=== PATIENT | female | born 1995 | race Caucasian/White ===

== ENCOUNTER 2021-04-30 17:06 | Emergency (ER) | payer OTHER, SELFPAY ==
--- NOTE | ~2021-04-30 | US_ITS ---
US venous doppler [facility] DATE: 04/30/2021 18:07 INDICATION: Swelling of left leg TECHNIQUE: Real-time and color flow imaging and Doppler analysis of the veins of the left lower extre mity COMPARISON: None FINDINGS: There is spontaneous and phasic flow and normal augmentation and color flow signal and norm al compression of the deep veins of the left leg. There is no evidence of deep venous thrombosis. IMPRESSION: No evidence of deep venous thrombosis of left lower extremity Reviewed, dictated and finalized at [facility] Reviewed, dictated and finalized at [facility].
[2021-04-30 17:42] VITALS: BP 119/87; PULSE 84; RESP 16; TEMP 36.6; O2SAT 97
[2021-04-30 18:45] VITALS: BP 111/72; PULSE 80; RESP 18; O2SAT 97
--- NOTE | 2021-04-30 18:48 | ED.GENADULT ---
HPI - General Adult General Chief complaint: Extremity Injury, Lower Stated complaint: left foot pain Time Seen by Provider: 04/30/21 18:27 Source: patient History of Present Illness HPI narrative: Patient is a 25 y/o female complaining of moderate left ankle swelling since yesterday. She has no ankle pain. She has no recently injury to her ankle. She has no chest pain or SOB. She was seen early today at [facility] and had negative xray. She states that her swelling has gone down since TERRENCE wrap was applied at [facility]. She was told that it could be a blood clot and decided to come here for further evaluation. Related Data Allergies Allergy/AdvReac Type Severity Reaction Status Date / Time fluoxetine [From Prozac] AdvReac Other Verified 04/30/21 18:44 Review of Systems Constitutional: Constitutional: Denies chills, Denies fever(s), Denies headache(s) and Denies weakness Eyes: Eyes: Denies blurry vision ENT: Denies headache(s) and Denies neck pain Cardiovascular: Cardiovascular: Denies chest pain and Denies dyspnea Respiratory: Respiratory: Denies cough and Denies dyspnea Gastrointestinal: Gastrointestinal: Denies abdominal pain, Denies diarrhea, Denies nausea and Denies vomiting Genitourinary: Genitourinary: Denies hematuria and Denies dysuria Musculoskeletal: Musculoskeletal: Denies back pain, Reports joint swelling (left farideh swelling) and Denies neck pain Neurologic: Denies headache(s) and Denies weakness Exam Const: General: no acute distress and well developed Orientation/consciousness: oriented to person, oriented to place, oriented to time and patient oriented x3 HENMT: Head: normocephalic Ears: external ears normal General nose exam: Normal external nose present Eyes: General: appearance normal, both eyes and all related structures Conjunctivae: conjunctivae normal Neck: Neck: normal visual inspection and full ROM Chest: Chest palpation & inspection: normal inspection of the chest and no tenderness Resp: Effort & Inspection: normal respiratory effort Auscultation: clear to auscultation bilaterally Cardio: Rate: regular rate Rhythm: regular rhythm GI: GI Palp: No abdominal tenderness and Yes Soft to palpation Skin: General skin exam: normal color and turgor normal Neuro: General: oriented to person, oriented to place, oriented to time and patient oriented x3 Cognition (Neuro): normal cognition Extrem: General: normal to inspection, full ROM and no pedal edema Right lower extremity: no edema Left lower extremity: no edema Psych: Appearance: grossly normal Mental Status: mental status grossly normal Affect: normal affect Course Vital Signs Vital signs: Vital Signs Temperature 36.6 C 04/30/21 17:42 Pulse Rate 84 04/30/21 17:42 Respiratory Rate 16 04/30/21 17:42 Blood Pressure 119/87 04/30/21 17:42 Pulse Oximetry 97 04/30/21 17:42 Temperature 36.6 C 04/30/21 17:42 Pulse Rate 80 04/30/21 18:45 Respiratory Rate 18 04/30/21 18:45 Blood Pressure 111/72 04/30/21 18:45 Pulse Oximetry 97 04/30/21 18:45 Medical Decision Making Vital Signs Vital Signs: Vital Signs Temperature 36.6 C 04/30/21 17:42 Pulse Rate 84 04/30/21 17:42 Respiratory Rate 16 04/30/21 17:42 Blood Pressure 119/87 04/30/21 17:42 Pulse Oximetry 97 04/30/21 17:42 Temperature 36.6 C 04/30/21 17:42 Pulse Rate 80 04/30/21 18:45 Respiratory Rate 18 04/30/21 18:45 Blood Pressure 111/72 04/30/21 18:45 Pulse Oximetry 97 04/30/21 18:45 Discharge Plan Discharge Clinical Impression: Left ankle swelling Patient Disposition: Home, Self-Care Condition: Stable Instructions: Edema (ED) Follow-up/Referrals: Hopper,Khadijah Wing APRN [Primary Care Provider] - Stand Alone Forms: Work/School Release IP
== END 2021-04-30 18:57 | disposition home or self-care (01) ==
PROVIDERS: Emergency Provider Emergency Medicine; PCP Nurse Practitioner Family
DX: M25.472 Effusion, left ankle (principal)
CPT/HCPCS: 93971; 99284

== ENCOUNTER 2023-02-19 11:30 | Emergency (ER) | payer OTHER, SELFPAY ==
[2023-02-19 11:52] VITALS: BP 121/84; PULSE 89; RESP 18; TEMP 36.3; O2SAT 96
[2023-02-19 12:44] LABS: Basophils Percent Auto 0.3 % (0.2-1.2); Eosinophils Percent Auto 0.2 % (0-4.4); Hematocrit 43.9 % (37.0-47.0); Hemoglobin 14.7 g/dL (12.0-15.0); Immature Granulocyte Absolute 0.04 K/mm3 (0.00-0.031); Immature Granulocyte Percent A 0.3 % (0-0.5); Lymphocytes Absolute Auto 2.37 K/mm3 (0.9-3.2); Lymphocytes Percent Auto 17.6 % (18.3-44.2); Mean Corpuscular HGB Conc 33.5 g/dl (32-36); Mean Corpuscular Hemoglobin 32.2 pg (26-34); Mean Corpuscular Volume 96.3 fl (80-100); Mean Platelet Volume 10.2 fl (7.4-10.4); Monocytes Absolute Auto 1.1 K/mm3 (0.1-0.6); Monocytes Percent Auto 7.9 % (2.6-8.5); Neutrophils Absolute Auto 9.9 K/mm3 (1.3-6.7); Neutrophils Percent Auto 73.7 % (45.5-73.1); Platelet Count Result 243 k/mm3 (150-375); Red Blood Count 4.56 M/mm3 (4.2-5.4); Red Cell Distribution Width 13.3 % (11.5-14.5); White Blood Count 13.5 K/mm3 (4.5-10.0)
[2023-02-19 12:46] LABS: Appearance Urine Cloudy (Clear); Bacteria Urine 1+ /hpf; Bilirubin Urine Negative (Negative); Blood Urine Negative (Negative); Color Urine Yellow (Yellow); Glucose Urine UA Negative (Negative); Ketones Urine Negative (Negative); Leukocyte Esterase Ur Negative LEU/UL (Negative); Nitrate Urine Negative (Negative); Non Pathogenic Casts 0-2; Protein Urine Negative (Negative); RBC Urine 0-2 /hpf (0-2); Specific Grav Ur 1.017 (1.001-1.035); Squamous Epithelial Cell Urine Moderate /hpf (Few); Urobilinogen Urine 0.2 mg/dL (<2.0); WBC Urine 0-5 /hpf; pH Urine 6.5 (5.0-9.0)
[2023-02-19 12:54] LABS: Alanine Aminotransferase 19 U/L (6-35); Albumin Level 4.3 g/dL (3.5-5.1); Alkaline Phosphatase 111 U/L (38-126); Anion Gap 3 mmol/L (8-16); Aspartate Amino Transferase 21 U/L (14-36); Bilirubin,Total 0.6 mg/dL (0.2-1.3); Blood Urea Nitrogen 8 mg/dL (7-17); Calcium 8.9 mg/dL (8.4-10.2); Carbon Dioxide 31 mmol/L (22-30); Chloride 103 mmol/L (98-107); Estimated Glomerular Filt Rate > 60; Glucose 97 mg/dL (65-110); Lipase 21 U/L (23-300); Potassium 4.1 mmol/L (3.4-5.0); Sodium 137 mmol/L (137-145)
[2023-02-19 13:02] LABS: Add Urine Microscopic? YES
--- NOTE | 2023-02-19 13:09 | ED.ABDPAIN ---
HPI - Abdominal Pain General Chief Complaint: Abdominal Pain Stated Complaint: abd pain Time Seen by Provider: 02/19/23 12:10 History of Present Illness HPI narrative: This is a 27-year-old female with past history of Crohn's, who presents to the emergency department complaining of cramping abdominal pain. She states the pain as rated 4/10, has been present for the past day but is not associated with bleeding, nausea or vomiting. The patient states she was taking an oral liquid medication but ran out. She attempted to call her GI doctor but was unable to reach him (Dr. Rich). Related Data Allergies Allergy/AdvReac Type Severity Reaction Status Date / Time fluoxetine [From Prozac] AdvReac Other Verified 04/30/21 18:44 Review of Systems Review of Systems: CONSTITUTIONAL: Denies fever, chills, or sweats. CARDIOVASCULAR: Denies chest pain, palpitations, or edema. RESPIRATORY: Denies cough or dyspnea. GASTROINTESTINAL: Cramping abdominal pain denies nausea, vomiting, or diarrhea. GENITOURINARY: Denies dysuria or hematuria. SKIN: Denies rash or itching. MUSCULOSKELETAL: Denies back pain, joint pain, or myalgia. NEUROLOGIC: Denies headache, numbness, dizziness, or weakness. PSYCHIATRIC: Denies anxiety or depression. [facility] Past Medical History Medical History Crohn disease Social History Social History (Updated 02/19/23 @ 23:57 by Rik Fernando MD) Smoking status: Never smoker Alcohol intake: current Drinks per week: 2 Substance use: current Substance use type: marijuana Exam Narrative: GENERAL: Well-developed, well-nourished, and in no acute distress. HEAD: Normocephalic, atraumatic. EYES: PERRLA and EOMI. ENT: Nares clear, no rhinorrhea or epistaxis. Mucous membranes moist. Oropharynx without tonsillar hypertrophy exudate or other lesions. CHEST: Clear to auscultation. No respiratory distress. No wheezes rales or rhonchi HEART: Regular rate and rhythm. No murmur heard. Normal peripheral pulses. ABDOMEN: Soft, nontender, nondistended, normal active bowel sounds. No CVA tenderness to palpation EXTREMITIES: Normal range of motion. No edema. SKIN: Warm, dry, no rash. NEURO: No focal deficits. Alert and oriented x3. PSYCH: Normal mood and affect. Course Course Emergency Course: 15:05 - White blood cell count 13.5. CRP 1.3 and ESR 9 - not significantly elevated. CBC otherwise unremarkable. Chemistries unremarkable. I do not suspect acute Crohn's flare. UA not concerning for UTI and test is negative. Will discharge with Bentyl. The patient has a follow-up appointment with her GI on March 17. Discussed return emergency precautions including signs/symptoms of acute abdomen and intractable vomiting. The patient voiced understanding and is comfortable with plan. All questions answered to her satisfaction. Vital Signs Vital signs: Vital Signs Temperature 97.4 F L 02/19/23 11:52 Pulse Rate 89 02/19/23 11:52 Respiratory Rate 18 02/19/23 11:52 Blood Pressure 121/84 02/19/23 11:52 Pulse Oximetry 96 02/19/23 11:52 Oxygen Delivery Room Air 02/19/23 11:52 Temperature 97.4 F L 02/19/23 11:52 Pulse Rate 82 02/19/23 15:26 Respiratory Rate 18 02/19/23 15:26 Blood Pressure 124/88 02/19/23 15:26 Pulse Oximetry 100 02/19/23 15:26 Oxygen Delivery Room Air 02/19/23 11:52 MDM - Abdominal Pain MDM Narrative Medical decision making narrative: Plan: Labs, pain control, test, reassess Differential Diagnosis Differential diagnosis: Likely constipation and other (UTI, Crohn's flare, , metabolic abnormality, other) Lab Data 02/19/23 12:20 02/19/23 12:20 Labs: Lab Results 02/19/23 02/19/23 02/19/23 Range/Units 12:19 12:19 12:20 WBC (4.5-10.0) K/mm3 RBC (4.2-5.4) M/mm3 Hgb (12.0-15.0) g/dL Hct (37.0-47.0) % MCV (80-100) fl MCH
[2023-02-19] MEDS: DICYCLOMINE HCL INJ 20 MG/2 ML VIAL IM (13:11)
[2023-02-19 13:13] LABS: CRP 1.3 mg/dL (<1.0)
[2023-02-19 14:35] LABS: Erythrocyte Sedimentation Rate 9 mm/hr (0-20)
[2023-02-19 15:26] VITALS: BP 124/88; PULSE 82; RESP 18; O2SAT 100
== END 2023-02-19 15:32 | disposition home or self-care (01) ==
PROVIDERS: Emergency Medicine; Emergency Provider Preventive Medicine Aerospace Medicine; PCP Nurse Practitioner Family
DX: R10.9 Unspecified abdominal pain (principal); K50.90 Crohn's disease, unspecified, without complications; F12.90 Cannabis use, unspecified, uncomplicated
CPT/HCPCS: 36415; 80053; 81001; 81025; 83690; 85025; 85652; 86140; 96372; 99283; J0500

== ENCOUNTER 2023-11-25 22:23 | Emergency (ER) | payer OTHER, SELFPAY ==
--- NOTE | ~2023-11-25 | CT_ITS ---
CT of the Abdomen and Pelvis: Indication: Abdominal pain Technique: 2.5 mm axial scans were obtained through the abdomen and pelvis following intravenous adm inistration of 100 cc of Omnipaque 350. Dose reduction technique was used on this scan by utilizing a utomated exposure control and iterative reconstruction technique. The dose-length product (DLP) was 1 412.17 mGy-cm. Findings: Scans through the lung bases are unremarkable. The liver, spleen, pancreas, gallbladder, adrenals and right kidney are within normal limits. 9 mm no nobstructing left renal stone noted. Additional 3 mm nonobstructing left renal stone also present. No evidence of aortic aneurysm. No lymphadenopathy. No bowel obstruction or bowel wall thickening. There is no evidence to suggest acute appendicitis. Images through the pelvis were performed. Urinary bladder unremarkable. No adnexal mass seen. No asci newton. Impression: Nonobstructing left nephrolithiasis, as detailed above. Reviewed, dictated and finalized at [facility]. [employer] Impression: Nonobstructing left nephrolithiasis, as detailed above.
[2023-11-25 22:30] VITALS: BP 135/77; PULSE 85; RESP 16; TEMP 36.8; O2SAT 98
[2023-11-25 22:59] LABS: Basophils Percent Auto 0.4 % (0.2-1.2); Eosinophils Absolute Auto 0.1 K/mm3 (0-0.3); Hematocrit 44.3 % (37.0-47.0); Hemoglobin 14.3 g/dL (12.0-15.0); Immature Granulocyte Absolute 0.03 K/mm3 (0.00-0.031); Immature Granulocyte Percent A 0.3 % (0-0.5); Lymphocytes Absolute Auto 3.01 K/mm3 (0.9-3.2); Lymphocytes Percent Auto 29.9 % (18.3-44.2); Mean Corpuscular HGB Conc 32.3 g/dl (32-36); Mean Corpuscular Hemoglobin 31.2 pg (26-34); Mean Corpuscular Volume 96.5 fl (80-100); Mean Platelet Volume 10.3 fl (7.4-10.4); Monocytes Absolute Auto 0.9 K/mm3 (0.1-0.6); Neutrophils Percent Auto 59.4 % (45.5-73.1); Platelet Count Result 266 k/mm3 (150-375); Red Blood Count 4.59 M/mm3 (4.2-5.4); White Blood Count 10.1 K/mm3 (4.5-10.0)
[2023-11-25 23:05] LABS: Appearance Urine Cloudy (Clear); Bacteria Urine 1+ /hpf; Bilirubin Urine Negative (Negative); Blood Urine 1+ (Negative); Color Urine Yellow (Yellow); Glucose Urine UA Negative (Negative); Ketones Urine Trace mg/dL (Negative); Leukocyte Esterase Ur 2+ LEU/UL (Negative); Nitrate Urine Negative (Negative); Non Pathogenic Casts 0-2; Protein Urine Negative (Negative); RBC Urine 0-2 /hpf (0-2); Specific Grav Ur 1.029 (1.001-1.035); Squamous Epithelial Cell Urine Few /hpf (Few); WBC Urine 51-100 /hpf
[2023-11-25 23:08] LABS: Alanine Aminotransferase 14 U/L (6-35); Albumin Level 4.2 g/dL (3.5-5.1); Alkaline Phosphatase 110 U/L (38-126); Anion Gap 8 mmol/L (8-16); Aspartate Amino Transferase 20 U/L (14-36); Bilirubin,Total 0.4 mg/dL (0.2-1.3); Blood Urea Nitrogen 15 mg/dL (7-17); Calcium 9.1 mg/dL (8.4-10.2); Carbon Dioxide 27 mmol/L (22-30); Chloride 104 mmol/L (98-107); Estimated CRCL calculation 112 ml/min; Estimated Glomerular Filt Rate > 60; Glucose 73 mg/dL (65-110); Lipase 58 U/L (23-300); Potassium 3.7 mmol/L (3.4-5.0); Sodium 139 mmol/L (137-145)
[2023-11-25 23:20] LABS: Add Urine Microscopic? YES
--- NOTE | 2023-11-26 00:48 | ED.ABDPAIN ---
HPI - Abdominal Pain General Chief Complaint: Abdominal Pain Stated Complaint: abd pain Time Seen by Provider: 11/26/23 00:11 Source: patient Mode of arrival: ambulatory Limitations: no limitations History of Present Illness HPI narrative: This is a 28 year old female that presents to the ER for abdominal pain. Ongoing over the last couple of hours. Reports mid abdominal pain and nausea. Does report some urinary frequency. Reports diarrhea that is chronic for her due to IBD. Denies fever, vomiting or dysuria. Related Data Allergies Allergy/AdvReac Type Severity Reaction Status Date / Time fluoxetine [From Prozac] AdvReac Other Verified 04/30/21 18:44 Review of Systems Review of Systems: CONSTITUTIONAL: Denies fever GASTROINTESTINAL: Reports abdominal pain, nausea, and diarrhea. GENITOURINARY: Denies dysuria or hematuria. All systems reviewed & are unremarkable except as noted in HPI and below PMFSH Past Medical History Medical History Crohn disease Social History Social History (Updated 02/19/23 @ 23:57 by Rik Fernando MD) Smoking status: Never smoker Alcohol intake: current Drinks per week: 2 Substance use: current Substance use type: marijuana Exam Narrative: GENERAL: Well-appearing, well-nourished, and in no acute distress. HEAD: Normocephalic, atraumatic. EYES: EOMI. CHEST: Clear to auscultation. No respiratory distress. No wheezes rales or rhonchi HEART: Regular rate and rhythm. No murmur heard. Normal peripheral pulses. ABDOMEN: Soft, nondistended, normal active bowel sounds. Mild tenderness to palpation throughout the mid abdomen, without guarding EXTREMITIES: Normal range of motion. No edema. SKIN: Warm, dry, no rash. NEURO: No focal deficits. Alert and oriented x3. PSYCH: Normal mood and affect Course Course Emergency Course: Patient updated on workup and agrees with plan of care. Resting comfortably Vital Signs Vital signs: Vital Signs Temperature 98.3 F 11/25/23 22:30 Pulse Rate 85 11/25/23 22:30 Respiratory Rate 16 11/25/23 22:30 Blood Pressure 135/77 11/25/23 22:30 Pulse Oximetry 98 11/25/23 22:30 Oxygen Delivery Room Air 11/25/23 22:30 Temperature 98.3 F 11/25/23 22:30 Pulse Rate 85 11/25/23 22:30 Respiratory Rate 16 11/25/23 22:30 Blood Pressure 135/77 11/25/23 22:30 Pulse Oximetry 98 11/25/23 22:30 Oxygen Delivery Room Air 11/25/23 22:30 MDM - Abdominal Pain MDM Narrative Medical decision making narrative: Patient presents to the emergency department for abdominal pain and nausea. She is afebrile and nontoxic appearing. Her vitals are stable. CBC without leukocytosis. Metabolic panel without concerning findings. UA with evidence of infection. This will be sent for culture. Bedside test is negative. CT abdomen and pelvis without acute findings. Patient updated on workup and agrees with plan of care. Resting comfortably. Patient given 1st dose of antibiotics IV in the ED. Will be sent with oral antibiotics. She is to follow up with her primary provider. She was given warnings to return to the ER Differential Diagnosis Differential diagnosis: Likely calculus of kidney, diverticulitis, gastroenteritis and other (UTI, colitis) Lab Data Attestation: I reviewed the patient's lab results. 11/25/23 22:37 11/25/23 22:37 Labs: Lab Results 11/25/23 Range/Units 22:37 WBC 10.1 H (4.5-10.0) K/mm3 RBC 4.59 (4.2-5.4) M/mm3 Hgb 14.3 (12.0-15.0) g/dL Hct 44.3 (37.0-47.0) % MCV 96.5 (80-100) fl MCH 31.2 (26-34) pg MCHC 32.3 (32-36) g/dl RDW 13.0 (11.5-14.5) % Plt Count 266 (150-375) k/mm3 MPV 10.3 (7.4-10.4) fl Immature Gran % (Auto) 0.3 (0-0.5) % Neut % (Auto) 59.4 (45.5-73.1) % Lymph % (Auto) 29.9 (18.3-44.2) % Appling % (Auto) 9.0 H (2.6-8.5) % Eos % (Auto) 1.0 (0-4.
[2023-11-26 03:14] VITALS: BP 132/70; PULSE 80; RESP 18; O2SAT 98
== END 2023-11-26 03:14 | disposition home or self-care (01) ==
PROVIDERS: Emergency Medicine; Emergency Provider Physician Assistant
DX: N39.0 Urinary tract infection, site not specified (principal); R10.9 Unspecified abdominal pain
CPT/HCPCS: 36415; 74177; 80053; 81001; 81025; 83690; 85025; 87077; 87086; 87088; 96365; 99284; J0696; Q9967

== ENCOUNTER 2024-03-30 03:09 | Emergency (ER) | payer OTHER, SELFPAY ==
--- NOTE | ~2024-03-30 | CT_ITS ---
CT of the Abdomen and Pelvis: Indication: Abdominal pain, Crohn's disease Technique: 2.5 mm axial scans were obtained through the abdomen and pelvis following intravenous adm inistration of 100 cc of Omnipaque 350. Dose reduction technique was used on this scan by utilizing a utomated exposure control and iterative reconstruction technique. The dose-length product (DLP) was 1 158.75 mGy-cm. COMPARISON: 11/26/2023 Findings: Scans through the lung bases are unremarkable. The liver, spleen, pancreas, gallbladder, adrenals and right kidney are within normal limits. 7 mm no nobstructing left renal stone present. Additional 3 mm nonobstructing left renal stone present. No ev idence of aortic aneurysm. No lymphadenopathy. No bowel obstruction or bowel wall thickening. There is no evidence to suggest acute appendicitis. Images through the pelvis were performed. Urinary bladder unremarkable. No pelvic mass seen. No ascit es. Impression: No acute abnormality seen. Stable nonobstructing left nephrolithiasis, as detailed above. Reviewed, dictated and finalized at [facility]. Impression: No acute abnormality seen. Stable nonobstructing left nephrolithiasis, as detailed above.
[2024-03-30 03:17] VITALS: BP 131/66; PULSE 94; RESP 13; TEMP 36.6; O2SAT 98
[2024-03-30 04:00] LABS: Appearance Urine Clear (Clear); Bacteria Urine None Seen /hpf; Bilirubin Urine Negative (Negative); Blood Urine Negative (Negative); Color Urine Yellow (Yellow); Glucose Urine UA Negative (Negative); Ketones Urine Negative (Negative); Leukocyte Esterase Ur Trace LEU/UL (Negative); Nitrate Urine Negative (Negative); Non Pathogenic Casts 0-2; Protein Urine Negative (Negative); RBC Urine 0-2 /hpf (0-2); Specific Grav Ur 1.013 (1.001-1.035); Squamous Epithelial Cell Urine Occasional /hpf (Few); Urobilinogen Urine 0.2 mg/dL (<2.0); WBC Urine 0-5 /hpf (0-3); pH Urine 6.5 (5.0-9.0)
[2024-03-30 04:01] LABS: Add Urine Microscopic? YES
[2024-03-30 04:28] LABS: Amphetamine Screen Urine Negative (Negative); Barbiturate Screen Urine Negative (Negative); Benzodiazepines Screen Urine Negative (Negative); Cannabinoid Screen Urine Positive (Negative); Cocaine Screen Urine Negative (Negative); Methadone Screen Urine Negative (Negative); Opiate Screen Urine Negative (Negative); Phencyclidine Screen Urine Negative (Negative)
[2024-03-30 04:31] LABS: Basophils Absolute Auto 0.1 K/mm3 (0.0-0.1); Basophils Percent Auto 0.4 % (0.2-1.2); Eosinophils Absolute Auto 0.1 K/mm3 (0-0.3); Eosinophils Percent Auto 0.7 % (0-4.4); Hematocrit 46.5 % (37.0-47.0); Hemoglobin 15.8 g/dL (12.0-15.0); Immature Granulocyte Absolute 0.04 K/mm3 (0.00-0.031); Immature Granulocyte Percent A 0.3 % (0-0.5); Lymphocytes Absolute Auto 3.26 K/mm3 (0.9-3.2); Lymphocytes Percent Auto 28.4 % (18.3-44.2); Mean Corpuscular Hemoglobin 31.6 pg (26-34); Mean Platelet Volume 10.5 fl (7.4-10.4); Monocytes Absolute Auto 1.1 K/mm3 (0.1-0.6); Monocytes Percent Auto 9.2 % (2.6-8.5); Platelet Count Result 246 k/mm3 (150-375); Red Cell Distribution Width 13.3 % (11.5-14.5); White Blood Count 11.5 K/mm3 (4.5-10.0)
[2024-03-30] MEDS: DICYCLOMINE HCL 10 MG CAPSULE 20 MG PO (04:35)
[2024-03-30] MEDS: KETOROLAC 15 MG/ML VIAL (*BKC) IV PUSH (04:35)
[2024-03-30 04:44] LABS: Ethanol < 10 mg/dL (<10)
[2024-03-30 04:57] LABS: Alanine Aminotransferase 18 U/L (6-35); Albumin Level 4.4 g/dL (3.5-5.1); Alkaline Phosphatase 93 U/L (38-126); Anion Gap 4 mmol/L (4-12); Aspartate Amino Transferase 22 U/L (14-36); Bilirubin,Total 0.5 mg/dL (0.2-1.3); Blood Urea Nitrogen 15 mg/dL (7-17); Calcium 9.7 mg/dL (8.4-10.2); Carbon Dioxide 26 mmol/L (22-30); Chloride 104 mmol/L (98-107); Estimated CRCL calculation 129 ml/min; Estimated Glomerular Filt Rate > 60; Glucose 96 mg/dL (65-110); Lipase 64 U/L (23-300); Potassium 4.1 mmol/L (3.4-5.0); Sodium 134 mmol/L (137-145)
--- NOTE | 2024-03-30 05:39 | ED.GENADULT ---
HPI - General Adult General Chief complaint: Abdominal Pain Stated complaint: abd pain Time Seen by Provider: 03/30/24 03:24 History of Present Illness HPI narrative: This is a 28-year-old female with history of Crohn's disease presenting for abdominal pain. Abdominal pain is a crampy pain in the suprapubic area that started earlier today. It is not associated nausea or vomiting. Her last bowel movement was earlier today was more firm than her typical diarrhea. Patient denies fever or chills. She denies urinary symptoms. She has been taking her Crohn's medications as directed. She has not taken anything for pain. Related Data Allergies Allergy/AdvReac Type Severity Reaction Status Date / Time fluoxetine [From Prozac] AdvReac Other Verified 04/30/21 18:44 [facility] Past Medical History Medical History Crohn disease Social History Social History Smoking status: Never smoker Alcohol intake: current Drinks per week: 2 Substance use: current Substance use type: marijuana Exam Narrative: APPEARANCE: No apparent distress. Head: atraumatic. EYES: EOMI, NOSE: Atraumatic NECK: Trachea midline RESPIRATORY: No increased rate of breathing CTAB CARDIOVASCULAR: RRR, ABDOMINAL: Mild suprapubic tenderness, the rest the abdomen is soft nontender no guarding or rebound. MUSCULOSKELETAl: No obvious deformities NEURO: Alert. Moving 4/4 extremities SKIN:: Warm, dry. Normal color PSYCHIATRIC: Normal affect Course Vital Signs Vital signs: Vital Signs Temperature 97.9 F 03/30/24 03:17 Pulse Rate 94 03/30/24 03:17 Respiratory Rate 13 03/30/24 03:17 Blood Pressure 131/66 03/30/24 03:17 Pulse Oximetry 98 03/30/24 03:17 Oxygen Delivery Room Air 03/30/24 03:17 Temperature 97.9 F 03/30/24 03:17 Pulse Rate 73 03/30/24 06:11 Respiratory Rate 16 03/30/24 06:11 Blood Pressure 129/72 03/30/24 06:11 Pulse Oximetry 96 03/30/24 06:11 Oxygen Delivery Room Air 03/30/24 03:17 Medical Decision Making [facility] Narrative Medical decision making narrative: -Course: 20-year-old female with Crohn's presenting with abdominal pain. Laboratory studies within limits. CT unremarkable. Patient's symptoms improved with Toradol and dicyclomine. vital signs stable and abdominal exam improved. Unclear etiology of abdominal pain but she says the dicyclomine made her feel much better. She will be provided prescription .Patient be discharged follow-up with her GI doctor. Given returnprecautions. -DDX includes but is not limited to: Crohn's flare, colitis, constipation, appendicitis -Co-morbidities complicating care: Crohn's disease -Independent interpretation of studies: labs reviewed within normal limits. UDS positive for cannabinoids. -Interventions: Toradol, dicyclomine -Shared decision making / Disposition: discharge -RX dicyclomine Vital Signs Vital Signs: Vital Signs Temperature 97.9 F 03/30/24 03:17 Pulse Rate 94 03/30/24 03:17 Respiratory Rate 13 03/30/24 03:17 Blood Pressure 131/66 03/30/24 03:17 Pulse Oximetry 98 03/30/24 03:17 Oxygen Delivery Room Air 03/30/24 03:17 Temperature 97.9 F 03/30/24 03:17 Pulse Rate 73 03/30/24 06:11 Respiratory Rate 16 03/30/24 06:11 Blood Pressure 129/72 03/30/24 06:11 Pulse Oximetry 96 03/30/24 06:11 Oxygen Delivery Room Air 03/30/24 03:17 Lab Data 03/30/24 04:24 03/30/24 04:24 Labs: Lab Results 03/30/24 03/30/24 Range/Units 03:45 04:24 WBC 11.5 H (4.5-10.0) K/mm3 RBC 5.00 (4.2-5.4) M/mm3 Hgb 15.8 H (12.0-15.0) g/dL Hct 46.5 (37.0-47.0) % MCV 93.0 (80-100) fl MCH 31.6 (26-34) pg MCHC 34.0 (32-36) g/dl RDW 13.3 (11.5-14.5) % Plt Count 246 (150-375) k/mm3 MPV 10.5 H (7.4-10.4) fl Immature Gran % (Auto)
[2024-03-30 06:11] VITALS: BP 129/72; PULSE 73; RESP 16; O2SAT 96
== END 2024-03-30 06:55 | disposition home or self-care (01) ==
PROVIDERS: Emergency Provider Emergency Medicine
DX: R10.9 Unspecified abdominal pain (principal); K50.90 Crohn's disease, unspecified, without complications
CPT/HCPCS: 36415; 74177; 80053; 80307; 81001; 81025; 83690; 85025; 96374; 99284; A9270; J1885; Q9967

== ENCOUNTER 2024-04-29 19:17 | Emergency (ER) | payer OTHER, SELFPAY ==
[2024-04-29 19:21] VITALS: BP 130/77; PULSE 97; RESP 18; TEMP 36.3; O2SAT 100
[2024-04-29 19:45] VITALS: O2SAT 100
--- NOTE | 2024-04-29 19:49 | ED.GENADULT ---
HPI - General Adult General Chief complaint: Allergic Reaction Stated complaint: allergic reaction Time Seen by Provider: 04/29/24 19:36 History of Present Illness HPI narrative: this is a 28-year-old female presenting with an allergic reaction. Started earlier today she developed hives over her groin, lower back arms and legs. she has some mild swelling of her lips. No swelling of her tongue uvula. No shortness of breath or lightheadedness. No nausea vomiting or diarrhea. No known allergen exposure Related Data Allergies Allergy/AdvReac Type Severity Reaction Status Date / Time fluoxetine [From Prozac] AdvReac Other Verified 04/29/24 19:24 [facility] Past Medical History Medical History Crohn disease Social History Social History Smoking status: Never smoker Alcohol intake: current Drinks per week: 2 Substance use: current Substance use type: marijuana Exam Narrative: APPEARANCE: No apparent distress. Head: no swelling of the tongue or uvula EYES: EOMI, NOSE: Atraumatic NECK: Trachea midline RESPIRATORY: No increased rate of breathing, clear to auscultation CARDIOVASCULAR: RRR, ABDOMINAL: Non-distended MUSCULOSKELETAl: No obvious deformities NEURO: Alert. Moving 4/4 extremities SKIN:: hives, primarily in the patient's groin and underneath her pannus, intermittent hives over her arms legs PSYCHIATRIC: Normal affect Course Vital Signs Vital signs: Vital Signs Temperature 97.4 F L 04/29/24 19:21 Pulse Rate 97 04/29/24 19:21 Respiratory Rate 18 04/29/24 19:21 Blood Pressure 130/77 04/29/24 19:21 Pulse Oximetry 100 04/29/24 19:21 Oxygen Delivery Room Air 04/29/24 19:21 Temperature 97.4 F L 04/29/24 19:21 Pulse Rate 97 04/29/24 19:21 Respiratory Rate 18 04/29/24 19:21 Blood Pressure 130/77 04/29/24 19:21 Pulse Oximetry 100 04/29/24 19:45 Oxygen Delivery Room Air 04/29/24 19:45 Medical Decision Making [facility] Narrative Medical decision making narrative: -Course: 28-year-old cutaneous allergic reaction. No signs of anaphylaxis. Treated with steroids Benadryl Pepcid. Discharged prescriptions and primary care. -DDX includes but is not limited to: allergic reaction, anaphylaxis -Co-morbidities complicating care:Ulcerative Colitis -Interventions: dexamethasone 10 mg, Benadryl 50 mg, Pepcid 40 mg -Shared decision making / Disposition: discharge -RX Benadryl Vital Signs Vital Signs: Vital Signs Temperature 97.4 F L 04/29/24 19:21 Pulse Rate 97 04/29/24 19:21 Respiratory Rate 18 04/29/24 19:21 Blood Pressure 130/77 04/29/24 19:21 Pulse Oximetry 100 04/29/24 19:21 Oxygen Delivery Room Air 04/29/24 19:21 Temperature 97.4 F L 04/29/24 19:21 Pulse Rate 97 04/29/24 19:21 Respiratory Rate 18 04/29/24 19:21 Blood Pressure 130/77 04/29/24 19:21 Pulse Oximetry 100 04/29/24 19:45 Oxygen Delivery Room Air 04/29/24 19:45 Discharge Plan Discharge Clinical Impression: Allergic reaction, Urticaria Patient Disposition: Home, Self-Care Condition: Stable Instructions: Antibiotic Form, General Allergic Reaction (ED) Additional Instructions: take steroids and Benadryl as prescribed. Please follow-up your primary care pursue further management. Return if you develop shortness of breath, lightheadedness, difficulty breathing, persistent nausea vomiting lightheadedness or feel like yourr condition is getting worse. Prescriptions: New diphenhydramine HCl [Benadryl] 25 mg capsule 25 mg PO TID PRN (Reason: allergic reaction) Qty: 30 0RF No Action dicyclomine 10 mg capsule 10 mg PO BID Qty: 20 0RF cefdinir 300 mg capsule 300 mg PO Q12H 5 Days Qty: 10 0RF dicyclomine 20 mg tablet 20 mg PO TID Qty: 30 0RF Follow-up/Referrals: PHYSICIAN,FERRYBOAT PILOT [Primary Care Provider]
[2024-04-29] MEDS: diphenhydrAMINE HCl CAP 25 MG CAPSULE 50 MG PO (19:52)
[2024-04-29] MEDS: dexAMETHasone SOD PHOS INJ 10 MG/ML 1 ML VIAL IM (19:53)
[2024-04-29] MEDS: FAMOTIDINE 20 MG TABLET 40 MG PO (19:53)
== END 2024-04-29 20:01 | disposition home or self-care (01) ==
LOC: ANHED 19:56
PROVIDERS: Emergency Provider Emergency Medicine
DX: L50.0 Allergic urticaria (principal); K50.90 Crohn's disease, unspecified, without complications
CPT/HCPCS: 96372; 99283; A9270; J1100

== ENCOUNTER 2024-10-16 19:27 | Emergency (ER) | payer OTHER, SELFPAY ==
--- NOTE | ~2024-10-16 | CT_ITS ---
CT of the Abdomen and Pelvis: Indication: Abdominal pain Technique: 2.5 mm axial scans were obtained through the abdomen and pelvis following intravenous adm inistration of 100 cc of Omnipaque 350. Dose reduction technique was used on this scan by utilizing a utomated exposure control and iterative reconstruction technique. The dose-length product (DLP) was 7 14.53 mGy-cm. COMPARISON: 03/30/2024 Findings: Scans through the lung bases are unremarkable. The liver, spleen, pancreas, gallbladder, adrenals and right kidney are within normal limits. Nonobst ructing left renal stones are present, largest measuring 1 cm in diameter. No evidence of aortic aneu rysm. No lymphadenopathy. No bowel obstruction or bowel wall thickening. There is no evidence to suggest acute appendicitis. Images through the pelvis were performed. Tiny bubble of air present in the urinary bladder. No adnex al mass evident. No ascites. Impression: Nonobstructing left nephrolithiasis, as above. Tiny bubble of air in urinary bladder. Correlate for iatrogenic air. Reviewed, dictated and finalized at location . [employer] Impression: Nonobstructing left nephrolithiasis, as above. Tiny bubble of air in urinary bladder. Correlate for iatrogenic air.
[2024-10-16 19:29] VITALS: BP 138/73; RESP 15; TEMP 36.1; O2SAT 100
[2024-10-16 22:14] VITALS: BP 124/56; PULSE 83; RESP 15; TEMP 36.4; O2SAT 97
[2024-10-17] VITALS: BP 137/90; PULSE 91; RESP 16; TEMP 36.4; O2SAT 98
[2024-10-17 00:01] LABS: BEDSIDEPREGUCG Negative (Negative)
[2024-10-17 00:08] LABS: Basophils Absolute Auto 0.1 K/mm3 (0.0-0.1); Basophils Percent Auto 0.5 % (0.2-1.2); Eosinophils Absolute Auto 0.1 K/mm3 (0-0.3); Eosinophils Percent Auto 0.8 % (0-4.4); Hematocrit 43.6 % (37.0-47.0); Hemoglobin 14.9 g/dL (12.0-15.0); Immature Granulocyte Absolute 0.06 K/mm3 (0.00-0.031); Immature Granulocyte Percent A 0.5 % (0-0.5); Lymphocytes Absolute Auto 4.84 K/mm3 (0.9-3.2); Lymphocytes Percent Auto 39.9 % (18.3-44.2); Mean Corpuscular HGB Conc 34.2 g/dl (32-36); Mean Corpuscular Hemoglobin 32.4 pg (26-34); Mean Corpuscular Volume 94.8 fl (80-100); Mean Platelet Volume 10.5 fl (7.4-10.4); Monocytes Absolute Auto 1.2 K/mm3 (0.1-0.6); Monocytes Percent Auto 9.6 % (2.6-8.5); Neutrophils Absolute Auto 5.9 K/mm3 (1.3-6.7); Neutrophils Percent Auto 48.7 % (45.5-73.1); Platelet Count Result 223 k/mm3 (150-375); Red Cell Distribution Width 13.8 % (11.5-14.5); White Blood Count 12.1 K/mm3 (4.5-10.0)
--- NOTE | 2024-10-17 00:08 | ED.GENADULT ---
HPI - General Adult General Chief complaint: Abdominal Pain Stated complaint: Abdominal Pain Time Seen by Provider: 10/16/24 23:32 History of Present Illness HPI narrative: Patient is a 29-year-old female who presents emergency department with chief complaint of abdominal pain. 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 the patient reports that she recently broke up and then got back together with her boyfriend has had a fair amount of intercourse and reports that she may just be having pain due to a abnormally active sexual activity the patient reports no vaginal discharge denies vaginal bleeding reports no blood in her stool Related Data Allergies Allergy/AdvReac Type Severity Reaction Status Date / Time fluoxetine [From Prozac] AdvReac Other Verified 04/29/24 19:24 Review of Systems Review of Systems: A 10 system review of systems was completed on the patient and is negative except for what is stated in the HPI. Nursing and ancillary documentation was reviewed. [facility] Past Medical History Medical History Crohn disease Social History Social History Smoking status: Never smoker Alcohol intake: current Drinks per week: 2 Substance use: current Substance use type: marijuana Exam Narrative: GENERAL: Well-appearing, well-nourished, and in no acute distress. HEAD: Normocephalic, atraumatic. EYES: PERRLA and EOMI. ENT: Nares clear, no rhinorrhea or epistaxis. Mucous membranes moist. NECK: Supple. CHEST: Clear to auscultation. No respiratory distress. HEART: Regular rate and rhythm. No murmur heard. Normal peripheral pulses. ABDOMEN: Soft, diffusely tender to palpation, nondistended, normal active bowel sounds. EXTREMITIES: Normal range of motion. No edema. SKIN: Warm, dry, no rash. NEURO: No focal deficits. Alert and oriented x3. PSYCH: Normal mood and affect. Course Vital Signs Vital signs: Vital Signs Temperature 36.1 C L 10/16/24 19:29 Respiratory Rate 15 10/16/24 19:29 Blood Pressure 138/73 10/16/24 19:29 Pulse Oximetry 100 10/16/24 19:29 Oxygen Delivery Room Air 10/16/24 19:29 Temperature 36.6 C 10/17/24 01:37 Pulse Rate 87 10/17/24 01:37 Respiratory Rate 14 10/17/24 01:37 Blood Pressure 145/83 H 10/17/24 01:37 Pulse Oximetry 100 10/17/24 01:37 Oxygen Delivery Room Air 10/16/24 19:29 Medical Decision Making MDM Narrative Medical decision making narrative: Differential diagnosis includes intra-abdominal infection, UTI, ultra colitis, diverticulitis, Laboratory studies were obtained the patient had a white count 12.1 electrolytes showed a BUN of 19 creatinine 0.6 urinalysis showed 21-50 white blood cells test was negative CT scan of the abdomen pelvis showed urinary wall thickening and findings consistent with cystitis Vital Signs Vital Signs: Vital Signs Temperature 36.1 C L 10/16/24 19:29 Respiratory Rate 15 10/16/24 19:29 Blood Pressure 138/73 10/16/24 19:29 Pulse Oximetry 100 10/16/24 19:29 Oxygen Delivery Room Air 10/16/24 19:29 Temperature 36.6 C 10/17/24 01:37 Pulse Rate 87 10/17/24 01:37 Respiratory Rate 14 10/17/24 01:37 Blood Pressure 145/83 H 10/17/24 01:37 Pulse Oximetry 100 10/17/24 01:37 Oxygen Delivery Room Air 10/16/24 19:29 Lab Data 10/16/24 23:55 10/16/24 23:55 Labs: Lab Results 10/16/24 10/16/24 Range/Units 23:55 23:59 WBC 12.1 H (4.5-10.0) K/mm3 RBC 4.60 (4.2-5.4) M/mm3 Hgb 14.9 (12.0-15.0) g/dL Hct 43.6 (37.0-47.0) % MCV 94.8 (80-100) fl MCH 32.4 (26-34) pg MCHC 34.2 (32-36) g/dl RDW 13.8 (11.5-14.5) % Plt Count 223 (150-375) k/mm3 MPV 10.5 H (7.4-10.4) fl Immature Gran % (Auto) 0.5 (0-0.5) % Neut % (Auto) 48.7 (45.5-73.1) % Lymph % (Auto) 39.9 (18.3-44.2) % [place] % (Auto) 9.6 H (2.6-8.5) % Eos % (Auto) 0.8 (0-4.4) % Baso % (Auto) 0.5 (0.2-1.2) % Lymph # (Auto) 4.84 H (0.9-3.2) K/mm3 [place] # (Auto) 1.2 H (0.1-0.6) K/mm3 Eos # (Auto) 0.1 (0-0.3) K/mm3 Baso # (Auto) 0.1 (0.0-0.1) K/mm3 Abs Immat Gran (auto) 0.06 H (0.00-0.031) K/mm3 Absolute Neuts (auto) 5.9 (1.3-6.7) K/mm3 Absolute Nucleated RBC 0.000 (0.0-0.012) K/mm3 Nucleated RBC % 0.0 (0.0-0.2) % Sodium 138 (137-145) mmol/L Potassium 3.9 (3.4-5.0) mmol/L Chloride 103 (98-107) mmol/L Carbon Dioxide 31 H (22-30) mmol/L Anion Gap 4 (4-12) mmol/L BUN 19 H (7-17) mg/dL Creatinine 0.60 L (0.7-1.0) mg/dL Estim Creat Clear Calc 119 ml/min Estimated GFR > 60 (59 - ) Glucose 107 (65-110) mg/dL Lactic Acid 1.4 (0.7-2.0) mmol/L Calcium 9.6 (8.4-10.2) mg/dL Total Bilirubin 0.4 (0.2-1.3) mg/dL AST 17 (14-36) U/L ALT 15 (6-35) U/L Alkaline Phosphatase 90 (38-126) U/L Total Protein 7.0 (6.3-8.2) g/dL Albumin 4.4 (3.5-5.1) g/dL Lipase 67 (23-300) U/L Urine Color Yellow (Yellow) Urine Appearance Clear (Clear) Urine pH 5.5 (5.0-9.0) Ur Specific [place] 1.021 (1.001-1.035) Urine Protein Negative (Negative) mg/dL Urine Glucose (UA) Negative (Negative) mg/dL Urine Ketones Negative (Negative) mg/dL Ur Blood (Man) 2+ H (Negative) Urine Nitrate Positive H (Negative) Urine Bilirubin Negative (Negative) Urine Urobilinogen 0.2 (<2.0) mg/dL Leukocyte Esterase Rfl 1+ H (Negative) ALDAIR/UL Urine RBC 6-10 H (0-2) /hpf Urine WBC 21-50 H (0-3) /hpf Ur Squamous Epith Cells Few (Few) /hpf Urine Bacteria 1+ H /hpf Urine Casts 0-2 POC Urine HCG, Qual Negative (Negative) Discharge Plan Discharge Clinical Impression: Abdominal pain, UTI (urinary tract infection) Patient Disposition: Home, Self-Care Condition: Stable Instructions: Antibiotic Form, Urinary Tract Infection in Women (ED), Abdominal Pain (ED) Additional Instructions: Please follow-up with your primary care provider Prescriptions: New cephalexin 500 mg capsule 500 mg PO Q12H 7 Days Qty: 14 0RF No Action dicyclomine 10 mg capsule 10 mg PO BID Qty: 20 0RF cefdinir 300 mg capsule 300 mg PO Q12H 5 Days Qty: 10 0RF dicyclomine 20 mg tablet 20 mg PO TID Qty: 30 0RF diphenhydramine HCl [Benadryl] 25 mg capsule 25 mg PO TID PRN (Reason: allergic reaction) Qty: 30 0RF Follow-up/Referrals: UNKNOWN,DOCTOR [Primary Care Provider] - Stand Alone Forms: Work/School Release IP Time of Disposition: 02:55
[2024-10-17 00:15] LABS: Add Urine Microscopic? YES; Appearance Urine Clear (Clear); Bacteria Urine 1+ /hpf; Bilirubin Urine Negative (Negative); Blood Urine 2+ (Negative); Color Urine Yellow (Yellow); Glucose Urine UA Negative (Negative); Ketones Urine Negative (Negative); Leukocyte Esterase Ur 1+ LEU/UL (Negative); Nitrate Urine Positive (Negative); Non Pathogenic Casts 0-2; Protein Urine Negative (Negative); Specific Grav Ur 1.021 (1.001-1.035); Squamous Epithelial Cell Urine Few /hpf (Few); Urobilinogen Urine 0.2 mg/dL (<2.0); WBC Urine 21-50 /hpf (0-3); pH Urine 5.5 (5.0-9.0)
[2024-10-17 00:32] LABS: Alanine Aminotransferase 15 U/L (6-35); Albumin Level 4.4 g/dL (3.5-5.1); Alkaline Phosphatase 90 U/L (38-126); Anion Gap 4 mmol/L (4-12); Aspartate Amino Transferase 17 U/L (14-36); Bilirubin,Total 0.4 mg/dL (0.2-1.3); Blood Urea Nitrogen 19 mg/dL (7-17); Calcium 9.6 mg/dL (8.4-10.2); Carbon Dioxide 31 mmol/L (22-30); Chloride 103 mmol/L (98-107); Estimated CRCL calculation 119 ml/min; Estimated Glomerular Filt Rate > 60; Glucose 107 mg/dL (65-110); Lactic Acid Reflex 1.4 mmol/L (0.7-2.0); Lipase 67 U/L (23-300); Potassium 3.9 mmol/L (3.4-5.0); Sodium 138 mmol/L (137-145)
[2024-10-17 01:37] VITALS: BP 145/83; PULSE 87; RESP 14; TEMP 36.6; O2SAT 100
[2024-10-17] MEDS: CEPHALEXIN 500 MG CAPSULE PO (03:02)
== END 2024-10-17 03:13 | disposition home or self-care (01) ==
PROVIDERS: Emergency Provider Emergency Medicine
DX: R10.9 Unspecified abdominal pain (principal); N39.0 Urinary tract infection, site not specified; K50.90 Crohn's disease, unspecified, without complications
CPT/HCPCS: 36415; 74177; 80053; 81001; 81025; 83605; 83690; 85025; 87086; 87186; 99284; A9270; Q9967

== ENCOUNTER 2024-11-12 11:32 | Emergency (ER) | payer OTHER, SELFPAY ==
[2024-11-12 12:25] VITALS: BP 117/75; PULSE 92; RESP 19; TEMP 36.2; O2SAT 98
--- NOTE | 2024-11-12 14:44 | ED.GIBLEED ---
HPI - GI Bleed General Chief complaint: GI Bleed Stated complaint: blood in stool Time Seen by Provider: 11/12/24 14:32 Source: patient Mode of arrival: ambulatory Limitations: no limitations History of Present Illness HPI Narrative: This is a 29-year-old female with PMH of IBD who presents to the ED for chief complaint of blood in stools and this morning. Patient states she was diagnosed with UC about 1.5 years ago. She is following with GI doctor on this but is still undergoing evaluation. She is not on any regular medications. States that she has never seen blood before with the UC so this was concerning to her. Reports she had 1 episode of bowel movement this morning with blood in the toilet and bright red blood on the paper. Endorses mild abdominal pain this is typical for her UC. Denies fevers, chills, flank pain nausea, vomiting, diarrhea. Related Data Allergies Allergy/AdvReac Type Severity Reaction Status Date / Time fluoxetine (From Prozac) AdvReac Other Verified 04/29/24 19:24 Review of Systems Review of Systems: All systems as dictated in HPI [facility] Past Medical History Medical History Crohn disease Social History Social History Smoking status: Never smoker Alcohol intake: current Drinks per week: 2 Substance use: current Substance use type: marijuana Exam Narrative: GENERAL: Well-appearing, well-nourished, and in no acute distress. HEAD: Normocephalic, atraumatic. EYES: PERRLA and EOMI. ENT: Nares clear, no rhinorrhea or epistaxis. Mucous membranes moist. Oropharynx without tonsillar hypertrophy exudate or other lesions. NECK: Supple. No adenopathy or masses. CHEST: No respiratory distress. Clear to auscultation. No wheezes rales or rhonchi HEART: Regular rate and rhythm. No murmur heard. Normal peripheral pulses. ABDOMEN: Soft, nontender, nondistended, normal active bowel sounds. MSK: Normal range of motion. No edema. SKIN: Warm, dry, no rash. NEURO: Alert and oriented x4. No focal deficits. PSYCH: Normal mood and affect. Course Vital Signs Vital signs: Vital Signs Temperature 97.1 F L 11/12/24 12:25 Pulse Rate 92 11/12/24 12:25 Respiratory Rate 19 11/12/24 12:25 Blood Pressure 117/75 11/12/24 12:25 Pulse Oximetry 98 11/12/24 12:25 Oxygen Delivery Room Air 11/12/24 12:25 Temperature 97.9 F 11/12/24 16:02 Pulse Rate 76 11/12/24 16:02 Respiratory Rate 18 11/12/24 16:02 Blood Pressure 124/82 11/12/24 16:02 Pulse Oximetry 99 11/12/24 16:02 Oxygen Delivery Room Air 11/12/24 12:25 MDM - GI Bleed MDM Narrative Medical decision making narrative: This is a 29 year old female with UC who presents to the ED for episode of bloody stool. Vitals are normal. Exam is unremarkable overall. No evidence of acute abdomen. Lab work is unremarkable as well. No need for advanced imaging today based on exam lab work. Presentation consistent with mild flare of UC. Patient was just primarily concerned as she has not yet had a bloody bowel movement with her UC. We discussed that this is part of the natural course of IBD and she was given Rx for Medrol Dosepak for mild flare. She has GI to follow up with. Patient will be discharged in stable condition. Supportive measures discussed and return precautions given. Patient is understanding and agreeable with plan for discharge with PCP follow-up. Lab Data 11/12/24 14:56 11/12/24 14:56 Labs: Lab Results 11/12/24 Range/Units 14:56 WBC 10.0 (4.5-10.0) K/mm3 RBC 4.27 (4.2-5.4) M/mm3 Hgb 13.7 (12.0-15.0) g/dL Hct 40.5 (37.0-47.0) % MCV 94.8 (80-100) fl MCH 32.1 (26-34) pg MCHC 33.8 (32-36) g/dl RDW 13.2 (11.5-14.5) % Plt Count 258 (150-375) k/mm3 MPV 10.1 (7.4-10.4) fl Immature Gran % (Auto) 0.4 (0-0.5) % Neut % (Auto) 63.9 (45.5-73.1) % Lymph % (Auto) 27.4 (18.3-44.2) % [place] % (Auto) 7.5 (2.6-8.5) % Eos % (Auto) 0.5 (0-4.4) % Baso % (Auto) 0.3 (0.2-1.2) % Lymph # (Auto) 2.75 (0.9-3.2) K/mm3 [place] # (Auto) 0.8 H (0.1-0.6) K/mm3 Eos # (Auto) 0.1 (0-0.3) K/mm3 Baso # (Auto) 0.0 (0.0-0.1) K/mm3 Abs Immat Gran (auto) 0.04 H (0.00-0.031) K/mm3 Absolute Neuts (auto) 6.4 (1.3-6.7) K/mm3 Absolute Nucleated RBC 0.000 (0.0-0.012) K/mm3 Nucleated RBC % 0.0 (0.0-0.2) % PT 13.4 (11.1-14.7) Seconds INR 1.0 APTT 31.3 (22.3-36.8) Seconds Sodium 137 (137-145) mmol/L Potassium 3.7 (3.4-5.0) mmol/L Chloride 107 (98-107) mmol/L Carbon Dioxide 31 H (22-30) mmol/L Anion Gap -1 L (4-12) mmol/L BUN 13 D (7-17) mg/dL Creatinine 0.60 L (0.7-1.0) mg/dL Estim Creat Clear Calc 119 ml/min Estimated GFR > 60 (59 - ) Glucose 71 (65-110) mg/dL Calcium 9.1 (8.4-10.2) mg/dL Total Bilirubin 0.4 (0.2-1.3) mg/dL AST 17 (14-36) U/L ALT 13 (6-35) U/L Alkaline Phosphatase 91 (38-126) U/L Total Protein 7.0 (6.3-8.2) g/dL Albumin 4.1 (3.5-5.1) g/dL Lipase 41 (23-300) U/L Discharge Plan Discharge Clinical Impression: BRBPR (bright red blood per rectum) Patient Disposition: Home, Self-Care Condition: Stable Instructions: Antibiotic Form Additional Instructions: Your evaluated in the ER today for episode of bloody stools. This is probably a UC flare. Please take steroids as prescribed. If you have any new or worsening symptoms please return to the ER for further evaluation. Patient Language: Bulgarian Prescriptions: New methylprednisolone [Medrol (Suresh)] 4 mg tablets,dose pack See Rx Instructions .ROUTE .COMPLEX Qty: 21 0RF Rx Instructions: for 6 days No Action dicyclomine 10 mg capsule 10 mg PO BID Qty: 20 0RF cefdinir 300 mg capsule 300 mg PO Q12H 5 Days Qty: 10 0RF dicyclomine 20 mg tablet 20 mg PO TID Qty: 30 0RF diphenhydramine HCl [Benadryl] 25 mg capsule 25 mg PO TID PRN (Reason: allergic reaction) Qty: 30 0RF cephalexin 500 mg capsule 500 mg PO Q12H 7 Days Qty: 14 0RF Follow-up/Referrals: UNKNOWN,DOCTOR [Non-Staff] - Stand Alone Forms: Work/School Release IP Time of Disposition: 15:21
[2024-11-12 15:06] LABS: Basophils Percent Auto 0.3 % (0.2-1.2); Eosinophils Absolute Auto 0.1 K/mm3 (0-0.3); Eosinophils Percent Auto 0.5 % (0-4.4); Hematocrit 40.5 % (37.0-47.0); Hemoglobin 13.7 g/dL (12.0-15.0); Immature Granulocyte Absolute 0.04 K/mm3 (0.00-0.031); Immature Granulocyte Percent A 0.4 % (0-0.5); Lymphocytes Absolute Auto 2.75 K/mm3 (0.9-3.2); Lymphocytes Percent Auto 27.4 % (18.3-44.2); Mean Corpuscular HGB Conc 33.8 g/dl (32-36); Mean Corpuscular Hemoglobin 32.1 pg (26-34); Mean Corpuscular Volume 94.8 fl (80-100); Mean Platelet Volume 10.1 fl (7.4-10.4); Monocytes Absolute Auto 0.8 K/mm3 (0.1-0.6); Monocytes Percent Auto 7.5 % (2.6-8.5); Neutrophils Absolute Auto 6.4 K/mm3 (1.3-6.7); Neutrophils Percent Auto 63.9 % (45.5-73.1); Platelet Count Result 258 k/mm3 (150-375); Red Blood Count 4.27 M/mm3 (4.2-5.4); Red Cell Distribution Width 13.2 % (11.5-14.5)
[2024-11-12 15:15] LABS: Alanine Aminotransferase 13 U/L (6-35); Albumin Level 4.1 g/dL (3.5-5.1); Alkaline Phosphatase 91 U/L (38-126); Anion Gap -1 mmol/L (4-12); Aspartate Amino Transferase 17 U/L (14-36); Bilirubin,Total 0.4 mg/dL (0.2-1.3); Blood Urea Nitrogen 13 mg/dL (7-17); Calcium 9.1 mg/dL (8.4-10.2); Carbon Dioxide 31 mmol/L (22-30); Chloride 107 mmol/L (98-107); Estimated CRCL calculation 119 ml/min; Estimated Glomerular Filt Rate > 60; Glucose 71 mg/dL (65-110); Lipase 41 U/L (23-300); Potassium 3.7 mmol/L (3.4-5.0); Sodium 137 mmol/L (137-145)
[2024-11-12 15:16] LABS: Prothrombin Time 13.4 Seconds (11.1-14.7)
[2024-11-12 15:17] LABS: Partial Thromboplastin Time 31.3 Seconds (22.3-36.8)
[2024-11-12 16:02] VITALS: BP 124/82; PULSE 76; RESP 18; TEMP 36.6; O2SAT 99
== END 2024-11-12 16:04 | disposition home or self-care (01) ==
PROVIDERS: Emergency Provider Physician Assistant
DX: K92.1 Melena (principal); K51.90 Ulcerative colitis, unspecified, without complications
CPT/HCPCS: 36415; 80053; 83690; 85025; 85610; 85730; 99283